=== PATIENT | female | born 1985 | race Caucasian/White ===

== ENCOUNTER 2019-07-02 13:15 | Outpatient (REF) | payer OTHER, SELFPAY ==
[2019-07-02 22:02] LABS: ALT 25 U/L (14-59); AST 22 U/L (15-37); Albumin 4.5 g/dL (3.4-5.0); Alkaline Phosphatase 47 U/L (46-116); Bilirubin, Direct 0.13 mg/dL (0.00-0.20); Bilirubin, Total 0.5 mg/dL (0.2-1.0); Hemoglobin A1C 5.5 % (3.8-5.6); TSH (W/Ref FT4) 1.66 uIU/mL (0.36-3.74); Total Protein 7.3 g/dL (6.4-8.2)
== END 2019-07-02 13:35 ==
LOC: NCHCN 13:15
PROVIDERS: PCP Nurse Practitioner Community Health; Visit Provider Nurse Practitioner Community Health
DX: G47.9 Sleep disorder, unspecified (principal); K21.9 Gastro-esophageal reflux disease without esophagitis; R19.4 Change in bowel habit
CPT/HCPCS: 80076; 83036; 84443

== ENCOUNTER 2021-05-05 13:10 | Outpatient (REF) | payer OTHER, SELFPAY ==
--- NOTE | 2021-05-05 11:40 | PAPFT_PTH ---
PATIENT: Jackeline Lucas LOC: [facility]#:[id number] AGE/SX: 36/F ROOM: RE05/05/[address]: Riri Coleman : 1985 BED: DIS: 05/05/2021 SPEC #: [id number] RECD: 05/06/21 13:08 STATUS: JUDI REIlene #: [id number] KATIANA: 05/05/21 11:[address]: Riri Coleman DEPT: [facility] Cytology RECD BY: Lucero Simmons ENTERED: 05/06/21 13:08 SP TYPE: PAPFT OTHR DR: Cece Carranza Tissues: 1 - CX/ENDOCX FOR PAP SMEARS Procedures: PAP THIN PREP/[facility] Screening HPV DNA PROBE Comments: [id number] (CHLAMYDIA/GC)
[2021-05-07 15:28] LABS: Chlamydia Result Negative (Negative); GC Result Negative (Negative)
== END 2021-05-05 13:11 | disposition home or self-care (01) ==
LOC: NCHCN 13:10
PROVIDERS: PCP Nurse Practitioner Community Health; Visit Provider Nurse Practitioner Family
DX: Z12.4 Encounter for screening for malignant neoplasm of cervix (principal); Z11.3 Encounter for screening for infections with a predominantly sexual mode of transmission; Z11.51 Encounter for screening for human papillomavirus (HPV); R87.810 Cervical high risk human papillomavirus (HPV) DNA test positive
CPT/HCPCS: 87491; 87591; 88142; 87624

== ENCOUNTER 2023-06-07 17:59 | Outpatient (REF) | payer OTHER, SELFPAY ==
--- NOTE | 2023-06-07 14:15 | PAPFT_PTH ---
PATIENT: Jackeline Lucas LOC: [facility]#:[id number] AGE/SX: 38/F ROOM: RE06/07/[address]: Riri Coleman : 1985 BED: DIS: 06/07/2023 SPEC #: [id number] RECD: 06/08/23 12:58 STATUS: JUDI REIlene #: [id number] KATIANA: 06/07/23 14:[address]: Riri Coleman DEPT: [facility] Cytology RECD BY: Lucero Simmons Tissues: 1 - CX/ENDOCX FOR PAP SMEARS Procedures: PAP THIN PREP/[facility] Screening HPV DNA PROBE Comments: [id number] (HPV 16 & 18/45) (CHLAMYDIA/GC)
[2023-06-09 15:37] LABS: Chlamydia Result Negative (Negative); GC Result Negative (Negative)
== END 2023-06-07 18:00 | disposition home or self-care (01) ==
LOC: NCHCN 17:59
PROVIDERS: PCP Nurse Practitioner Community Health; Visit Provider Nurse Practitioner Family
DX: Z00.01 Encounter for general adult medical examination with abnormal findings (principal)
CPT/HCPCS: 87491; 87591; 88142; 87624